=== PATIENT | female | born 1965 | race African-American/Black ===

== ENCOUNTER 2018-02-05 11:56 | Emergency (ER) | payer OTHER ==
[~2018-02-05] VITALS: Ht 162.6 cm; Wt 82.1 kg
--- NOTE | ~2018-02-05 | EKG ---
[place] [address] [facility] [place] [address] ELECTROCARDIOGRAM REPORT Name: ANNY BEDOYA [id number] Admission: 02/05/18 Attend Phys: Discharge: Date of : 63 Report #: [id number] THIS REPORT FOR: //name// [facility] ED Test Date: 2018-02-05 Test Time: 12:48:08 Pat Name: ANNY BEDOYA Department: Room: Gender: F Tack Welder: ARABELLA : 1965 Requested By: Jef Nair Order Number: [id number] MD: Rashel Corrales Measurements Intervals [place] Rate: 87 P: 45 WA: 171 QRS: 22 QRSD: 100 T: 83 QT: 393 QTc: 473 Interpretive Statements Sinus rhythm Probable left atrial enlargement ST elev, probable normal early repol pattern No previous ECG available for comparison Electronically Signed On 02-05-2018 14:01:58 CDT by Rashel Corrales [email or web address] <ELECTRONICALLY SIGNED> By: Rashel Corrales MD 02/05/18 1401 1248 1248 MD ORI Nielsen
[2018-02-05 12:54] LABS: ABSOLUTE NEUTROPHILS 2.9 thou/uL (1.4-8.2); BASOPHILS 1.1 % (0.0-2.0); EOSINOPHILS 2.1 % (0.0-3.0); HEMATOCRIT 40.1 % (37.0-47.0); HEMOGLOBIN 13.4 gm/dL (12.0-15.0); LYMPHOCYTES 43.7 % (24.0-44.0); MCHC 33.4 g/dL (28.0-37.0); MCV 92.8 fL (80.0-100.0); MONOCYTES 6.1 % (1.0-8.0); PLATELET COUNT 213 thou/uL (150-400); RBC 4.32 mil/uL (4.20-5.00); RDW 13.2 % (10.5-14.5); WBC 6.2 thou/uL (4.0-11.0)
[2018-02-05] MEDS ORDERED: METFORMIN HCL500 MG PO (13:14)
[2018-02-05] MEDS ORDERED: LISINOPRIL20 MG PO (13:14)
[2018-02-05] MEDS ORDERED: NEURONTIN600 MG PO (13:14)
[2018-02-05 15:01] LABS: ANION GAP 2 mmol/L (7-16); BUN 11 mg/dL (7-18); CALCIUM 8.9 mg/dL (8.5-10.1); CHLORIDE 107 mmol/L (98-107); CO2 30 mmol/L (21-32); CREATININE 0.8 mg/dL (0.6-1.0); GLUCOSE 268 mg/dL (74-106); POTASSIUM 3.8 mmol/L (3.5-5.1); SODIUM 139 mmol/L (136-145)
[2018-02-05 15:07] LABS: ALBUMIN 2.8 g/dL (3.4-5.0); SGOT 18 U/L (15-37); SGPT 20 U/L (30-65); TOTAL BILIRUBIN 0.3 mg/dL (<0.1-1.0); TOTAL PROTEIN 6.5 g/dL (6.4-8.2); TROPONIN-I < 0.04 ng/mL (<0.06)
[2018-02-05 16:16] VITALS: BP 169/101
== END 2018-02-05 16:18 | disposition home or self-care (01) ==
LOC: ER 11:56
PROVIDERS: Physician Assistant
DX: M48.00 Spinal stenosis, site unspecified (principal); Z87.891 Personal history of nicotine dependence; Z88.1 Allergy status to other antibiotic agents; Z88.5 Allergy status to narcotic agent